=== PATIENT | male | born 1970 | race Caucasian/White ===

== ENCOUNTER 2022-11-03 21:18 | Emergency (ER) | payer BC, SELFPAY ==
--- NOTE | ~2022-11-03 | XR_ITS ---
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 RESULT: Lines, tubes, and devices: None. Lungs and pleura: Clear. Cardiomediastinal silhouette: Stable. Other: No acute osseous or upper abdominal finding. IMPRESSION: No acute cardiopulmonary process. Reviewed, dictated and finalized at location K. D SUPPORT SPECIALIST
[2022-11-03 21:29] VITALS: BP 169/94; PULSE 66; RESP 20; TEMP 36.7; O2SAT 100
--- NOTE | 2022-11-03 21:30 | ECG_ITS ---
Measurements Intervals [place] Rate: 67 P: 22 RI: 189 QRS: 2 QRSD: 95 T: 35 QT: 388 QTc: 411 Interpretive Statements SINUS RHYTHM NORMAL ECG NO PREVIOUS ECG AVAILABLE FOR COMPARISON Electronically Signed On 11-05-2022 14:32:27 INTERNATIONAL FLIGHT ATTENDANT by Kendall Tan M.D.
--- NOTE | 2022-11-03 21:40 | ED.GENADULT ---
HPI - General Adult General Chief complaint: Unspecified Stated complaint: spitting up blood Time Seen by Provider: 11/03/22 21:24 History of Present Illness HPI narrative: Demar is a previously healthy 52M that presented to the ED with hemoptysis that started 20 minutes before arrival. He reports that he has had a cough off and on for more than several days and was even on a steroid for an adverse reaction to cough suppressant. Before arrival he had a severe hacking spell where he started to cough up blood tinged sputum. In the first few minutes of being in the ED he coughed up blood tinged sputum onto a few gauze pads. He is a non-smoker and does not do drugs. No fevers, chills, N/V, night sweats, CP or weight loss reported. Related Data Home Medications Medication Instructions Recorded Confirmed No Home Medications 11/03/22 11/03/22 Review of Systems Review of Systems: All systems reviewed & are unremarkable except as noted in HPI and below Exam Const: General: cooperative, healthy appearing and comfortable; No no acute distress Nutritional Appearance: average body habitus Orientation/consciousness: oriented to person Limitations: no limitations HENMT: Head: normal to inspection, No palpable skull fracture present, normocephalic and atraumatic Eyes: General: appearance normal, both eyes and all related structures Neck: Neck: normal visual inspection Chest: Chest palpation & inspection: normal inspection of the chest Resp: Effort & Inspection: normal respiratory effort and able to speak in complete sentences Auscultation: clear to auscultation bilaterally Cardio: Jugular venous distension: no JVD Rate: regular rate Rhythm: regular rhythm GI: Inspection: normal to inspection Back/Spine/Pelvis: Back: no CVA tenderness Skin: General skin exam: normal color and no rashes or lesions noted Neuro: General: oriented to person, oriented to place and oriented to time Extrem: General: normal to inspection Psych: Appearance: grossly normal Course Course Emergency Course: Ordered CXR, labs and EKG EKG showed NSR with a rate of 67, normal axis and no ST elevation/depression Labs showed leukocytosis at 18.6 (likely from the steroids), normal coags but elevated AST/ALT EXAMINATION:? XR chest 1V portable Exam Date/Time:? 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 Comparison:? 04/24/2008. RESULT: Lines, tubes, and devices:? None. Lungs and pleura:? Clear. Cardiomediastinal silhouette:? Stable. Other:? No acute osseous or upper abdominal finding. IMPRESSION: No acute cardiopulmonary process. On reassessment the hemoptysis had stopped completely and his cough was much improved too. We discussed doing a CT w/ contrast with the risk of radiation vs the risk of an ominous cause of the bleeding such as cancer. After this dicussion he decided to follow up with his primary care doctor on the hemoptysis issue as well his elevated liver enzymes. Vital Signs Vital signs: Vital Signs Temperature 98.1 F 11/03/22 21:29 Pulse Rate 66 11/03/22 21:29 Respiratory Rate 20 11/03/22 21:29 Blood Pressure 169/94 H 11/03/22 21:29 Pulse Oximetry 100 11/03/22 21:29 Oxygen Delivery Room Air 11/03/22 21:29 Temperature 98.1 F 11/03/22 21:29 Pulse Rate 66 11/03/22 21:29 Respiratory Rate 20 11/03/22 21:29 Blood Pressure 169/94 H 11/03/22 21:29 Pulse Oximetry 100 11/03/22 21:29 Oxygen Delivery Room Air 11/03/22 21:29 Medical Decision Making MDM Narrative Medical decision making narrative: DDx:bronchitis vs pneumonia vs malignancy epistaxis vs other 3rd Republican conversations: Labs/Imaging: As above Shared decision making: discussed with patient as above Consultants/ Admitting Providers: Chronic conditions: none Admission consideration: Social Determinants of Health: Vital Signs Vital Signs: Vital Signs Temperature 98.1 F 1
[2022-11-03 21:45] LABS: Basophils Absolute Auto 0.07 K/mm3 (0.00-0.10); Basophils Percent Auto 0.4 % (0.0-1.0); Eosinophils Absolute Auto 0.11 K/mm3 (0.02-0.50); Eosinophils Percent Auto 0.6 % (1.0-6.0); Hematocrit 40.6 % (40.0-54.0); Hemoglobin 14.3 g/dL (14.0-18.0); Immature Granulocyte Absolute 0.39 K/mm3 (0.00-0.00); Immature Granulocyte Percent A 2.1 % (0.0-0.0); Lymphocytes Percent Auto 9.1 % (18.0-42.0); Mean Corpuscular HGB Conc 35.2 g/dL (32.0-36.0); Mean Corpuscular Hemoglobin 32.1 pg (27.0-31.0); Mean Platelet Volume 9.4 fl (8.7-11.0); Monocytes Absolute Auto 1.58 K/mm3 (0.10-0.90); Monocytes Percent Auto 8.5 % (2.0-11.0); Neutrophils Absolute Auto 14.8 K/mm3 (1.7-7.2); Neutrophils Percent Auto 79.3 % (50.0-70.0); Platelet Count Result 428 K/mm3 (150-420); Red Blood Count 4.46 M/mm3 (4.70-6.10); Red Cell Distribution Width 12.5 % (11.6-14.4); White Blood Count 18.6 K/mm3 (4.8-10.8)
[2022-11-03 22:10] LABS: Alanine Aminotransferase 116 U/L (16-63); Alkaline Phosphatase 91 U/L (46-116); Anion Gap 9 mmol/L (8-16); Aspartate Amino Transferase 47 U/L (15-37); Bilirubin,Total 0.3 mg/dL (0.00-1.00); Blood Urea Nitrogen 20 mg/dL (7-18); Calcium 9.1 mg/dL (8.5-10.1); Carbon Dioxide 27 mmol/L (21-32); Chloride 102 mmol/L (98-108); Estimated Glomerular Filt Rate > 60; Glucose 120 mg/dL (70-99); Osmolality Calculated 289 mOsm/kg (285-295); Potassium 4.3 mmol/L (3.5-5.1); Sodium 138 mmol/L (136-145); Total Protein 7.7 g/dL (6.4-8.2)
[2022-11-03 22:34] VITALS: BP 122/82; PULSE 66; RESP 20; TEMP 36.7; O2SAT 100
== END 2022-11-03 22:38 | disposition home or self-care (01) ==
PROVIDERS: Emergency Provider Family Medicine; PCP Internal Medicine
DX: R04.2 Hemoptysis (principal); R74.01 Elevation of levels of liver transaminase levels
CPT/HCPCS: 36415; 71045; 80053; 85025; 85610; 93005; 99283